=== PATIENT | female | born 1990 | race African-American/Black ===

== ENCOUNTER 2018-02-02 10:33 | Inpatient (IN) | payer BC ==
[2018-02-02] VITALS (46 sets, daily range): BP systolic 107–132; BP diastolic 58–98; PULSE 62–93; TEMP 97.9–98.7
[~2018-02-02] VITALS: Ht 161.3 cm; Wt 90.0 kg
[2018-02-02] MEDS ORDERED: OSCAL 500 TAB500 MG PO (11:11)
[2018-02-02] MEDS ORDERED: CONCEPT DHA1 CAP PO (11:11)
[2018-02-02 12:51] LABS: BASO % 0.3 % (0.0-2.0); EOS # 0.1 (0.0-0.7); EOS % 1.4 % (0-4.0); GRAN # 6.2 (1.4-6.5); GRAN % 68.7 % (42.2-75.2); HEMATOCRIT 39.8 % (37.0-47.0); HEMOGLOBIN 13.4 g/dl (12.5-16.0); LYMPH # 1.7 (1.2-3.4); LYMPH % 18.7 % (20.0-51.0); MEAN CELL VOLUME 92 fl (80.0-100.0); MEAN CORPUSCULAR HEMOGLOBIN 31 pg (27.0-31.0); MEAN CORPUSCULAR HGB CONC 34 g/dl (33.0-37.0); MEAN PLATELET VOLUME 11.3 fl (7.4-10.4); MONO # 0.9 (0.1-0.6); MONO % 9.6 % (1.7-9.3); PLATELET COUNT 256 K/mm3 (130-400); RED BLOOD COUNT 4.35 M/mm3 (4.10-5.30); REDCELL DISTRIBUTION WIDTH-CV 13.4 % (11.5-14.5)
[2018-02-03] VITALS (42 sets, daily range): BP systolic 94–142; BP diastolic 50–86; PULSE 60–110; TEMP 97.6–99.7
[2018-02-04 03:50] VITALS: BP 98/74; PULSE 94; TEMP 97.6
[2018-02-04 08:40] VITALS: BP 110/68; PULSE 80; TEMP 97.9
[2018-02-04 20:45] VITALS: BP 120/87; PULSE 76; TEMP 98.6
[2018-02-05 08:25] VITALS: BP 127/80; PULSE 76; TEMP 98.2
[2018-02-05] MEDS ORDERED: IBU800 M1 PO (08:28)
[2018-02-05] MEDS ORDERED: PERCOCET 325 MG1 TA2 PO (08:28)
[2018-02-05 16:00] VITALS: BP 128/69; PULSE 89; TEMP 98.2
== END 2018-02-05 17:55 | disposition home or self-care (01) | DRG 788 ==
LOC: LDRO 10:33 → LDR 11:21 → OB 02-03 08:16
PROVIDERS: Obstetrics & Gynecology
PROC: 10D00Z1 Extraction of Products of Conception, Low, Open Approach (ICD-10-PCS; principal; 2018-02-03)
PROC: 0UB90ZX Excision of Uterus, Open Approach, Diagnostic (ICD-10-PCS; 2018-02-03)
DX: O62.1 Secondary uterine inertia (principal); Z3A.39 39 weeks gestation of pregnancy; Z37.0 Single live birth; O34.13 Maternal care for benign tumor of corpus uteri, third trimester; D25.9 Leiomyoma of uterus, unspecified; O99.824 Streptococcus B carrier state complicating childbirth
CPT/HCPCS: J0690; J2210; J2270; J2405; J2540; J2590; J7120

== ENCOUNTER → 2020-04-08 | Outpatient (CLI) | payer OTHER, MEDICAID ==
[~2020-04-08] MED LIST: CONCEPT DHA1 CAP PO; IBU800 M1 PO; OSCAL 500 TAB500 MG PO; PERCOCET 325 MG1 TA2 PO
== END ==
LOC: ZCOL.LAB 08:00
DX: Z20.822 Contact with and (suspected) exposure to COVID-19 (principal)

== ENCOUNTER 2020-04-12 23:55 | Inpatient (IN) | payer OTHER, MEDICAID ==
[~2020-04-12] VITALS: Ht 161.3 cm; Wt 83.2 kg
[2020-04-13] VITALS (20 sets, daily range): BP systolic 94–148; BP diastolic 30–96; PULSE 66–130; TEMP 97.7–98.4
--- NOTE | 2020-04-13 | NUR ---
Pt arrived on unit escorted by and with complaints of contractions every 3 minutes since 10pm. Pt denies any leaking of fluid or vaginal bleeding, reports mucous discharge and reports normal movement. EFM and toco monitors started. Vital signs WNL. SVE by this RN 6-7/100/-2.
--- NOTE | 2020-04-13 00:45 | NUR ---
Dr. Domingo at the bedside for evaluation and discussion for repeat . Plan of care for repeat reviewed with pt and at the bedside. Both verbalized an understanding, agreed with the plan and states no questions or concerns.
[2020-04-13 00:51] LABS: BASO % 0.4 % (0.0-2.0); EOS # 0.1 (0.0-0.7); EOS % 1.2 % (0-4.0); GRAN # 5.2 (1.4-6.5); GRAN % 60.3 % (42.2-75.2); HEMOGLOBIN 10.4 g/dl (12.5-16.0); LYMPH # 1.9 (1.2-3.4); LYMPH % 22.5 % (20.0-51.0); MEAN CELL VOLUME 90 fl (80.0-100.0); MEAN CORPUSCULAR HEMOGLOBIN 30 pg (27.0-31.0); MEAN CORPUSCULAR HGB CONC 33 g/dl (33.0-37.0); MEAN PLATELET VOLUME 10.7 fl (7.4-10.4); MONO # 1.2 (0.1-0.6); MONO % 14.4 % (1.7-9.3); PLATELET COUNT 271 K/mm3 (130-400); RED BLOOD COUNT 3.51 M/mm3 (4.10-5.30); REDCELL DISTRIBUTION WIDTH-CV 14.3 % (11.5-14.5)
[2020-04-13 00:52] LABS: HEMATOCRIT 31.6 % (37.0-47.0)
--- NOTE | 2020-04-13 09:43 | NUR ---
Initial visit; Parents thanked Senior Tax Manager for offering congratulations and God's blessings for the of their daughter. Senior Tax Manager thanked family for choosing [place].
[2020-04-14 08:00] VITALS: BP 111/74; PULSE 77; TEMP 98.2
[2020-04-14] MEDS ORDERED: IBU800 M1 PO (08:44)
[2020-04-14] MEDS ORDERED: PERCOCET 325 MG1 TA2 PO (08:44)
== END 2020-04-14 15:00 | disposition home or self-care (01) | DRG 788 ==
LOC: LDRO 23:55 → OB 04-13 00:40 → LDR 04-13 00:40 → OB 04-13 02:13
PROVIDERS: Student in an Organized Health Care Education/Training Program; ADMIT Obstetrics & Gynecology
PROC: 10D00Z1 Extraction of Products of Conception, Low, Open Approach (ICD-10-PCS; principal; 2020-04-13)
DX: O99.214 Obesity complicating childbirth (principal); O99.02 Anemia complicating childbirth; O34.13 Maternal care for benign tumor of corpus uteri, third trimester; D25.1 Intramural leiomyoma of uterus; E66.9 Obesity, unspecified; D64.9 Anemia, unspecified; Z3A.39 39 weeks gestation of pregnancy; Z37.0 Single live birth; O34.211 Maternal care for low transverse scar from previous cesarean delivery
CPT/HCPCS: J0690; J1100; J1885; J2405; J2590; J7120